=== PATIENT | female | born 1985 | race Caucasian/White ===

== ENCOUNTER 2024-01-24 22:01 | Inpatient (IN) | payer MEDICAID ==
[~2024-01-24] VITALS: Ht 170.2 cm; Wt 66.3 kg
[~2024-01-24 22:01] MED LIST: HYDR1TAB PO; IBUP-1984 PO
[2024-01-24 22:39] LABS: BASOPHILS % (AUTO) 0.8 % (0-1); EOSINOPHILS % (AUTO) 0.2 % (0-6); HEMATOCRIT 35.6 % (35.0-45.0); LYMPHOCYTES # (AUTO) 0.7 X10'3 (1.1-4.8); LYMPHOCYTES % (AUTO) 17.4 % (21-51); MEAN CORPUSCULAR HGB CONC 33.8 g/dL (33.0-36.5); MEAN CORPUSCULAR VOLUME 100.3 FL (78-98); MEAN PLATELET VOLUME 7.5 FL (7.4-10.4); MONOCYTES # (AUTO) 0.5 X10'3 (0-0.9); MONOCYTES % (AUTO) 10.6 % (2-12); PLATELET COUNT 175 X10'3 (140-440); RED BLOOD COUNT 3.55 X10'6 (4.20-5.60); RED CELL DISTRIBUTION WIDTH 15.1 % (11.5-14.5); WHITE BLOOD COUNT 4.2 X10'3 (4.5-11.0)
[2024-01-24 22:56] LABS: ALANINE AMINOTRANSFERASE 156 U/L (12-78); ALBUMIN 4.1 G/DL (3.4-5.0); ALBUMIN/GLOBULIN RATIO 1.1 (1.1-1.5); ALKALINE PHOSPHATASE 115 IU/L (46-116); ANION GAP 11 (8-16); ASPARTATE AMINO TRANSFERASE 281 U/L (10-37); BILIRUBIN,TOTAL 3.2 MG/DL (0.1-1.0); BLOOD UREA NITROGEN 3 MG/DL (7-18); CALCIUM 8.8 MG/DL (8.5-10.1); CHLORIDE 88 MMOL/L (99-107); CREATININE 0.75 MG/DL (0.40-0.90); GLUCOSE 130 MG/DL (70-104); LIPASE 78 U/L (16-77); SODIUM 122 MMOL/L (135-145); TOTAL CARBON DIOXIDE 23.1 MMOL/L (24-32); TOTAL PROTEIN 7.7 G/DL (6.4-8.2); eCRCL 97 ML/MIN; eGFR 86 ML/MIN
[2024-01-24 22:56] LABS: URINE HCG NEGATIVE (NEG)
[2024-01-24 23:00] LABS: BILIRUBIN,URINE MODERATE (Neg); CLARITY,URINE SLIGHTLY CLOUDY (Clear); COLOR,URINE YELLOW (Yellow); GLUCOSE, URINE NEGATIVE (Neg); KETONES,URINE 15 mg/dl (Neg); LEUKOCYTE ESTERASE ,URINE NEGATIVE (Neg); OCCULT BLOOD,URINE SMALL (Neg); PROTEIN,URINE >=300 mg/dl (Neg)
[2024-01-24 23:25] LABS: NITRITES, URINE NEGATIVE (Neg)
[2024-01-24] MEDS: normal saline 1000ML IV soln IVB ONE (23:28)
[2024-01-24 23:30] LABS: UA COLLECTION TYPE CLN CATCH MIDSTREAM
[2024-01-24 23:31] LABS: SQUAMOUS EPITHELIAL CELL,UR MODERATE /LPF (FEW)
[2024-01-24 23:32] LABS: BACTERIA,URINE FEW /HPF (Neg); MUCUS STRANDS FEW /LPF (Neg); WBC,URINE 0-4 /HPF (0-4)
[2024-01-24] MEDS: phenazopyridine 100mg tablet PO ONE (23:39)
[2024-01-24] MEDS: ondansetron 4mg rapidly disintigrating tab PO ONE (23:40)
[2024-01-25] MEDS: HYDROmorphone 1 mg/ml syringe IV ONE (01:32)
[2024-01-25] MEDS: metroNIDAZOLE-Flagyl 500mg/NS 100 ML IV ONE (01:34)
[2024-01-25] MEDS ORDERED: potassium Cl 20 mEq SR tablet PO PRN (01:55)
[2024-01-25] MEDS: ondansetron/PF 4mg/2ml inj IV ONE (01:55)
[2024-01-25] MEDS ORDERED: magnesium sulf-water 4G/100mL 100 ML IV PRN (01:55)
[2024-01-25] MEDS ORDERED: morphine 2 MG/ML inj. syringe IV PRN ×2 (01:55→02:50)
[2024-01-25] MEDS ORDERED: potassium Cl 40MEQ/1/2NS 520ml 520 ML IV PRN (01:55)
[2024-01-25] MEDS ORDERED: magnesium sulf-water 2g/50mL 50 ML IV PRN (01:55)
[2024-01-25] MEDS ORDERED: ondansetron/PF 4mg/2ml inj IV PRN (01:55)
[2024-01-25] MEDS ORDERED: haloperidol 5mg tablet PO PRN (02:30)
[2024-01-25 02:35] LABS: HEMOGLOBIN A1C 4.7 % (4.5-6.2)
[2024-01-25 02:36] LABS: OSMOLALITY 248.5 MOSM/K (280-300)
[2024-01-25 02:58] LABS: MAGNESIUM 1.4 MG/DL (1.5-2.4); PRO BRAIN NATRIURETIC PEPTIDE 426 PG/ML (0-125)
[2024-01-25] MEDS: piperacillin/tazo 3.375gm/50ml 50 ML IV ONE (03:12)
[2024-01-25] MEDS: LORazepam 1 MG tablet PO PRN (03:12)
[2024-01-25 03:14] LABS: AMYLASE 40 U/L (25-115); LACTATE DEHYDROGENASE 267 U/L (81-234)
[2024-01-25] MEDS: pantoprazole 40 MG vial IV SCH (03:14)
[2024-01-25 03:58] LABS: SODIUM,URINE RANDOM 50 MEQ/L
[2024-01-25 04:00] LABS: URINE AMPHETAMINE SCREEN NEGATIVE (Neg); URINE BARBITUATE SCREEN NEGATIVE (Neg); URINE BENZODIAZEPINES SCREEN NEGATIVE (Neg); URINE CANNABINOID SCREEN NEGATIVE (Neg); URINE COCAINE SCREEN NEGATIVE (Neg); URINE METHADONE SCREEN NEGATIVE (Neg); URINE OPIATE SCREEN POSITIVE (Neg); URINE PHENCYCLIDINE SCREEN NEGATIVE (Neg)
[2024-01-25 04:00] LABS: BILIRUBIN,DIRECT 1.2 MG/DL (0-0.3)
[2024-01-25 04:06] LABS: OSMOLALITY UA 200 MOSM/K (50-1400)
[2024-01-25] MEDS: normal saline 1000ml 1,000 ML IV SCH (04:10)
[2024-01-25] MEDS ORDERED: PROP10TA10 PO (04:22)
[2024-01-25] MEDS ORDERED: LOSA50TA64 PO (04:22)
[2024-01-25 07:11] LABS: ALANINE AMINOTRANSFERASE 114 U/L (12-78); ALBUMIN 3.5 G/DL (3.4-5.0); ALBUMIN/GLOBULIN RATIO 1.1 (1.1-1.5); ALKALINE PHOSPHATASE 91 IU/L (46-116); ANION GAP 11 (8-16); ASPARTATE AMINO TRANSFERASE 164 U/L (10-37); BILIRUBIN,DIRECT 1.2 MG/DL (0-0.3); BLOOD UREA NITROGEN 3 MG/DL (7-18); CALCIUM 7.8 MG/DL (8.5-10.1); CHLORIDE 91 MMOL/L (99-107); GLUCOSE 102 MG/DL (70-104); POTASSIUM 3.2 MMOL/L (3.5-5.1); SODIUM 123 MMOL/L (135-145); TOTAL CARBON DIOXIDE 21.5 MMOL/L (24-32); TOTAL PROTEIN 6.6 G/DL (6.4-8.2); eCRCL 121 ML/MIN; eGFR > 90 ML/MIN
[2024-01-25 07:30] LABS: ALBUMIN 3.7 G/DL (3.4-5.0); ANION GAP 13 (8-16); BLOOD UREA NITROGEN 3 MG/DL (7-18); CALCIUM 8.1 MG/DL (8.5-10.1); CHLORIDE 90 MMOL/L (99-107); GLUCOSE 101 MG/DL (70-104); POTASSIUM 3.4 MMOL/L (3.5-5.1); SODIUM 124 MMOL/L (135-145); eCRCL 121 ML/MIN; eGFR > 90 ML/MIN
[2024-01-25 07:34] LABS: APTT 24 SECONDS (22-32); INR 1.1 INR; PROTHROMBIN TIME 11.5 SECONDS (9.0-12.0)
[2024-01-25] MEDS: thiamine 100mg/ml 2ml inj. IV SCH (08:17)
[2024-01-25] MEDS: heparin, porcine 5000 units/ml vial SQ SCH (08:17)
[2024-01-25] MEDS: losartan 50mg tablet PO SCH (08:18)
[2024-01-25] MEDS: folic acid 1mg/0.2ml inj IV SCH (08:18)
[2024-01-25] MEDS: potassium Cl 20 mEq SR tablet PO PRN (08:31)
[2024-01-25] MEDS: K and/or MAG REPLACEMENT MC SCH (08:32)
[2024-01-25 11:00] VITALS: BP 154/98; PULSE 95; RESP 17; TEMP 97; O2SAT 98
[2024-01-25 11:57] VITALS: RESP 16; O2SAT 98
[2024-01-25 18:00] VITALS: BP 160/98; RESP 13; TEMP 97.2; O2SAT 98
[2024-01-25 19:43] LABS: ALBUMIN 3.6 G/DL (3.4-5.0); ANION GAP 11 (8-16); BLOOD UREA NITROGEN 1 MG/DL (7-18); BUN/CREATININE RATIO 1.6 (10.0-20.0); CALCIUM 8.3 MG/DL (8.5-10.1); CHLORIDE 95 MMOL/L (99-107); CREATININE 0.62 MG/DL (0.40-0.90); GLUCOSE 87 MG/DL (70-104); POTASSIUM 3.6 MMOL/L (3.5-5.1); SODIUM 128 MMOL/L (135-145); TOTAL CARBON DIOXIDE 21.8 MMOL/L (24-32); eCRCL 117 ML/MIN; eGFR > 90 ML/MIN
[2024-01-25 20:00] VITALS: RESP 13; O2SAT 96
[2024-01-25] MEDS: HYDROcodone/acetaminophen 5mg/325mg tablet PO PRN (20:37)
[2024-01-25] MEDS: propranolol 10mg tablet PO SCH (21:11)
[2024-01-25 22:00] VITALS: BP 164/107; PULSE 98; RESP 16; TEMP 97.2; O2SAT 98
[2024-01-26 02:00] VITALS: BP 177/106; PULSE 73; RESP 14; TEMP 97.6; O2SAT 100
[2024-01-26 06:53] VITALS: BP 176/102; PULSE 71; RESP 12; TEMP 97.2; O2SAT 99
[2024-01-26 07:04] LABS: BASOPHILS % (AUTO) 0.7 % (0-1); EOSINOPHILS % (AUTO) 1.1 % (0-6); HEMATOCRIT 31.4 % (35.0-45.0); HEMOGLOBIN 10.6 g/dl (12.0-16.0); LYMPHOCYTES # (AUTO) 0.9 X10'3 (1.1-4.8); LYMPHOCYTES % (AUTO) 33.6 % (21-51); MEAN CORPUSCULAR HEMOGLOBIN 33.9 PG (27.0-31.0); MEAN CORPUSCULAR HGB CONC 33.7 g/dL (33.0-36.5); MEAN CORPUSCULAR VOLUME 100.7 FL (78-98); MEAN PLATELET VOLUME 8.1 FL (7.4-10.4); MONOCYTES # (AUTO) 0.3 X10'3 (0-0.9); MONOCYTES % (AUTO) 13.1 % (2-12); NEUTROPHILS # (AUTO) 1.3 X10'3 (1.8-7.7); NEUTROPHILS % (AUTO) 51.5 % (42-75); PLATELET COUNT 120 X10'3 (140-440); RED BLOOD COUNT 3.12 X10'6 (4.20-5.60); RED CELL DISTRIBUTION WIDTH 15.2 % (11.5-14.5); WHITE BLOOD COUNT 2.6 X10'3 (4.5-11.0)
[2024-01-26 07:10] LABS: INR 1.1 INR; PROTHROMBIN TIME 11.5 SECONDS (9.0-12.0)
[2024-01-26 07:40] LABS: PLATELET ESTIMATE DECREASED; STOMATOCYTES 1+; TOTAL CELLS COUNTED 100
[2024-01-26 07:42] LABS: ALBUMIN 3.6 G/DL (3.4-5.0); ANION GAP 9 (8-16); BILIRUBIN,TOTAL 2.2 MG/DL (0.1-1.0); BLOOD UREA NITROGEN 2 MG/DL (7-18); BUN/CREATININE RATIO 3.3 (10.0-20.0); CHLORIDE 92 MMOL/L (99-107); CREATININE 0.61 MG/DL (0.40-0.90); GLUCOSE 88 MG/DL (70-104); MAGNESIUM 1.5 MG/DL (1.5-2.4); PHOSPHORUS 1.6 MG/DL (2.3-4.5); POTASSIUM 3.4 MMOL/L (3.5-5.1); SODIUM 125 MMOL/L (135-145); TOTAL CARBON DIOXIDE 24.5 MMOL/L (24-32); TOTAL PROTEIN 6.7 G/DL (6.4-8.2); eCRCL 119 ML/MIN; eGFR > 90 ML/MIN
[2024-01-26 07:43] LABS: ALANINE AMINOTRANSFERASE 89 U/L (12-78); ALBUMIN/GLOBULIN RATIO 1.2 (1.1-1.5); ALKALINE PHOSPHATASE 83 IU/L (46-116); AMYLASE 29 U/L (25-115); ASPARTATE AMINO TRANSFERASE 96 U/L (10-37); FREE T4 (FREE THYROXINE) 1.01 NG/DL (0.73-1.40); LIPASE 59 U/L (16-77); THYROID STIMULATING HORMONE 4.49 ulU/ml (0.34-4.50)
[2024-01-26] MEDS: CefTRIAXone/D5W-Rocephin 1gm 50 ML IV SCH (07:57)
[2024-01-26] MEDS: losartan 50mg tablet PO SCH (07:58)
[2024-01-26 08:00] VITALS: RESP 12; O2SAT 99
[2024-01-26 11:00] VITALS: BP 139/94; PULSE 70; RESP 16; TEMP 97.4; O2SAT 97
[2024-01-26] MEDS ORDERED: haloperidol 5mg tablet PO PRN (13:50)
[2024-01-26] MEDS ORDERED: LORazepam 2 mg/ml vial IV PRN (13:50)
[2024-01-26] MEDS ORDERED: haloperidol lactate 5mg/ml inj IM PRN (13:50)
[2024-01-27 13:16] LABS: ANTINUCLEAR ANTIBODIES Negative (Negative)
[2024-01-28] MEDS ORDERED: thiamine 100mg tablet PO SCH (08:00)
[2024-01-28 11:14] LABS: A/G RATIO 1.3 (0.7-1.7); ALBUMIN 3.7 g/dL (2.9-4.4); ALPHA-1-GLOBULIN 0.2 g/dL (0.0-0.4); ALPHA-2-GLOBULIN 0.6 g/dL (0.4-1.0); BETA GLOBULIN 1.1 g/dL (0.7-1.3); GAMMA GLOBULIN 0.8 g/dL (0.4-1.8); GLOBULIN, TOTAL 2.8 g/dL (2.2-3.9); M-SPIKE Not Observed g/dL (Not Observed); PROTEIN, TOTAL, SERUM 6.5 g/dL (6.0-8.5)
== END 2024-01-26 14:45 | disposition left against medical advice (07) | DRG 426 ==
LOC: ER 22:02 → ED HOLD 01-25 02:00 → PCU 3S 01-25 07:31
PROVIDERS: ADMIT Internal Medicine Critical Care Medicine; ATTEND Family Medicine
DX: E87.1 Hypo-osmolality and hyponatremia (principal); K85.20 Alcohol induced acute pancreatitis without necrosis or infection; K75.9 Inflammatory liver disease, unspecified; I10 Essential (primary) hypertension; Z53.21 Procedure and treatment not carried out due to patient leaving prior to being seen by health care provider; R74.01 Elevation of levels of liver transaminase levels; K52.9 Noninfective gastroenteritis and colitis, unspecified; E86.0 Dehydration; F10.20 Alcohol dependence, uncomplicated; F19.10 Other psychoactive substance abuse, uncomplicated; E87.6 Hypokalemia; Z98.891 History of uterine scar from previous surgery
CPT/HCPCS: 36415; 74176; 80048; 80053; 80305; 81001; 81025; 82150; 82248; 83036; 83605; 83615; 83690; 83735; 83880; 83930; 83935; 84100; 84145; 84155; 84165; 84300; 84439; 84443; 85007; 85025; 85610; 85651; 85730; 86038; 86060; 86256; 87040; 99285; G0378; J0696; J1171; J1644; J2405; J2470; J2543; J3411; J3490; J7030

== ENCOUNTER 2024-01-28 03:51 | Emergency (ER) | payer MEDICAID ==
[~2024-01-28] VITALS: Ht 154.9 cm; Wt 36.2 kg
[~2024-01-28 03:51] MED LIST changes: -HYDR1TAB PO; -IBUP-1984 PO; +LOSA50TA64 PO; +PROP10TA10 PO
[2024-01-28] MEDS ORDERED: ASPI-1071 PO (04:43)
[2024-01-28] MEDS ORDERED: OMEP20CA15 PO (04:52)
[2024-01-28 04:54] LABS: BILIRUBIN,URINE NEGATIVE (Neg); CLARITY,URINE CLEAR (Clear); COLOR,URINE YELLOW (Yellow); GLUCOSE, URINE NEGATIVE (Neg); KETONES,URINE TRACE mg/dl (Neg); LEUKOCYTE ESTERASE ,URINE NEGATIVE (Neg); NITRITES, URINE NEGATIVE (Neg); OCCULT BLOOD,URINE NEGATIVE (Neg); PH,URINE 5.5 (4.8-8.0); PROTEIN,URINE NEGATIVE (Neg); UROBILINOGEN,URINE 0.2 E.U/dL (0.2-1.0)
[2024-01-28 04:58] LABS: UA COLLECTION TYPE CLN CATCH MIDSTREAM
[2024-01-28 05:11] LABS: URINE AMPHETAMINE SCREEN NEGATIVE (Neg); URINE BARBITUATE SCREEN NEGATIVE (Neg); URINE BENZODIAZEPINES SCREEN NEGATIVE (Neg); URINE CANNABINOID SCREEN NEGATIVE (Neg); URINE COCAINE SCREEN NEGATIVE (Neg); URINE METHADONE SCREEN NEGATIVE (Neg); URINE OPIATE SCREEN NEGATIVE (Neg); URINE PHENCYCLIDINE SCREEN NEGATIVE (Neg)
[2024-01-28 05:54] LABS: BASOPHILS % (AUTO) 0.3 % (0-1); EOSINOPHILS % (AUTO) 0.2 % (0-6); HEMOGLOBIN 11.8 g/dl (12.0-16.0); LYMPHOCYTES # (AUTO) 0.8 X10'3 (1.1-4.8); LYMPHOCYTES % (AUTO) 16.7 % (21-51); MEAN CORPUSCULAR HEMOGLOBIN 34.6 PG (27.0-31.0); MEAN CORPUSCULAR HGB CONC 34.5 g/dL (33.0-36.5); MEAN CORPUSCULAR VOLUME 100.1 FL (78-98); MEAN PLATELET VOLUME 8.1 FL (7.4-10.4); MONOCYTES # (AUTO) 0.6 X10'3 (0-0.9); MONOCYTES % (AUTO) 12.8 % (2-12); NEUTROPHILS # (AUTO) 3.4 X10'3 (1.8-7.7); PLATELET COUNT 144 X10'3 (140-440); WHITE BLOOD COUNT 4.9 X10'3 (4.5-11.0)
[2024-01-28 06:08] LABS: ALANINE AMINOTRANSFERASE 84 U/L (12-78); ALBUMIN/GLOBULIN RATIO 1.2 (1.1-1.5); ALKALINE PHOSPHATASE 92 IU/L (46-116); ANION GAP 14 (8-16); ASPARTATE AMINO TRANSFERASE 94 U/L (10-37); BILIRUBIN,TOTAL 1.7 MG/DL (0.1-1.0); BLOOD UREA NITROGEN 2 MG/DL (7-18); BUN/CREATININE RATIO 3.3 (10.0-20.0); CALCIUM 8.9 MG/DL (8.5-10.1); CHLORIDE 90 MMOL/L (99-107); GLUCOSE 70 MG/DL (70-104); SODIUM 125 MMOL/L (135-145); THYROID STIMULATING HORMONE 1.11 ulU/ml (0.34-4.50); TOTAL PROTEIN 7.3 G/DL (6.4-8.2); eCRCL 71 ML/MIN; eGFR > 90 ML/MIN
[2024-01-28 06:17] LABS: POTASSIUM 2.9 MMOL/L (3.5-5.1)
[2024-01-28 06:32] LABS: ETHANOL 33 MG/DL (<10)
[2024-01-28] MEDS: losartan 50mg tablet PO SCH (08:00)
[2024-01-28] MEDS ORDERED: non-formulary drug (Omeprazole 1 CAP) PO SCH (08:00)
[2024-01-28] MEDS: propranolol 10mg tablet PO SCH (08:00)
[2024-01-28 08:02] LABS: MAGNESIUM 1.6 MG/DL (1.5-2.4)
[2024-01-28 08:06] LABS: ACETAMINOPHEN < 2.0 UG/ML (10-30)
[2024-01-28] MEDS: thiamine 100mg tablet PO ONE (08:58)
[2024-01-28] MEDS: potassium Cl 20 mEq SR tablet PO STA (08:59)
[2024-01-28] MEDS: pantoprazole 40mg Tablet.DR PO SCH (08:59)
[2024-01-28] MEDS: aspirin 81mg, enteric-coated 1 TAB TABLET.DR PO SCH (08:59)
[2024-01-28 12:32] LABS: URINE HCG NEGATIVE (NEG)
[2024-01-28] MEDS: diphenhydrAMINE 25mg capsule PO ONE (21:49)
[2024-01-28] MEDS: LORazepam 1 MG tablet PO ONE (21:49)
[2024-01-29 10:57] LABS: ALBUMIN 3.5 G/DL (3.4-5.0); ANION GAP 10 (8-16); BLOOD UREA NITROGEN 5 MG/DL (7-18); BUN/CREATININE RATIO 5.8 (10.0-20.0); CALCIUM 9.5 MG/DL (8.5-10.1); CHLORIDE 95 MMOL/L (99-107); CREATININE 0.86 MG/DL (0.40-0.90); GLUCOSE 122 MG/DL (70-104); POTASSIUM 3.6 MMOL/L (3.5-5.1); SODIUM 131 MMOL/L (135-145); TOTAL CARBON DIOXIDE 26.4 MMOL/L (24-32); eCRCL 50 ML/MIN; eGFR 73 ML/MIN
[2024-01-29] MEDS: diphenhydrAMINE 25mg capsule PO ONE (21:55)
[2024-01-30 05:30] VITALS: BP_DIAS 79; TEMP 97.9; O2SAT 97
[2024-01-30] MEDS: acetaminophen 325mg tablet PO ONE (05:32)
[2024-01-30 07:40] VITALS: RESP 16
[2024-01-30 08:35] VITALS: BP_SYST 113; PULSE 87
== END 2024-01-30 14:40 ==
LOC: ER 03:52
DX: F23 Brief psychotic disorder (principal); F32.A Depression, unspecified; I10 Essential (primary) hypertension; Z79.82 Long term (current) use of aspirin; Z79.899 Other long term (current) drug therapy; Z98.890 Other specified postprocedural states; Z20.822 Contact with and (suspected) exposure to COVID-19
CPT/HCPCS: 36415; 80048; 80053; 80305; 80320; 80329; 81003; 81025; 82140; 83735; 84443; 85025; 87811; 99285; Q0163

== ENCOUNTER 2024-02-24 13:46 | Emergency (ER) | payer MEDICAID ==
[~2024-02-24] VITALS: Ht 154.9 cm; Wt 66.8 kg
[~2024-02-24 13:46] MED LIST changes: +ASPI-1071 PO; +OMEP20CA15 PO
[2024-02-24 15:34] VITALS: BP 148/98; PULSE 80; RESP 18; TEMP 97; O2SAT 98
== END 2024-02-24 15:39 | disposition home or self-care (01) ==
LOC: ER 13:46
DX: F10.10 Alcohol abuse, uncomplicated (principal); I10 Essential (primary) hypertension; Z79.82 Long term (current) use of aspirin; Y90.9 Presence of alcohol in blood, level not specified
CPT/HCPCS: 99281